=== PATIENT | female | born 1990 | race Caucasian/White ===

== ENCOUNTER 2018-10-29 14:59 | Emergency (ER) | payer MEDICAID ==
--- NOTE | 2018-10-29 17:30 | EDM.PDOC ---
ED HPI GENERAL MEDICAL PROBLEM - General Chief Complaint: Cardiovascular Problem Stated Complaint: FAST HEART RATE Time Seen by Provider: 10/29/18 17:30 Source of Information: Reports: Patient History Limitations: Reports: No Limitations - History of Present Illness INITIAL COMMENTS - FREE TEXT/NARRATIVE: pt arrived with a history of about 1/2 hour of heart rates in the teens. She does have a event recorder on so they should be able to recapture the rhythm. Pt does have some questionable thyroid abnormality which she needs to get checked out. Onset: Today, Sudden Duration: Other ( episode lasted about 1/2 hour/ ) Location: Reports: Chest Associated Symptoms: Reports: No Other Symptoms Chest Pain Score (Numeric/FACES): 4 - Related Data Allergies Allergy/AdvReac Type Severity Reaction Status Date / Time amoxicillin Allergy Hives Verified 10/29/18 16:08 Penicillins Allergy Hives Verified 10/29/18 16:08 Sulfa (Sulfonamide Allergy Hives Verified 10/29/18 16:08 Antibiotics) ibuprofen AdvReac Headache Verified 10/29/18 16:08 Home Meds: Home Meds Cholecalciferol (Vitamin D3) [Vitamin D] 5,000 unit PO BEDTIME 10/29/18 [History ] Dihydroxyacetone [Chromelin Complexion Blow Molder] 30 ml TP QID 10/29/18 [History] Fluticasone Propionate [Flonase] 16 gm NS DAILY 10/29/18 [History] Gabapentin [Neurontin] 800 mg PO BID 10/29/18 [History] Loratadine 10 mg PO DAILY 10/29/18 [History] PARoxetine [Paxil] 10 mg PO DAILY 10/29/18 [History] lamoTRIgine [Lamotrigine] 100 mg PO BID 10/29/18 [History] medroxyPROGESTERone Acetate [Depo-Provera] 150 mg IM ASDIRECTED 10/29/18 [ History] Past Medical History HEENT History: Reports: Allergic Rhinitis Cardiovascular History: Reports: Other (See Below) Other Cardiovascular History: [place] Gastrointestinal History: Reports: Chronic Constipation, Chronic Diarrhea, Irritable Bowel Syndrome [employer] History: Reports: Polycystic Ovaries Musculoskeletal History: Reports: Other (See Below) Other Musculoskeletal History: joint pain Neurological History: Reports: Concussion, Migraines Psychiatric History: Reports: Anxiety, Depression, Suicidal Ideation, Other ( See Below) Endocrine/Metabolic History: Reports: Vitamin D Deficiency Hematologic History: Reports: Other (See Below) Other Hematologic History: Lymes - Infectious Disease History Infectious Disease History: Reports: Chicken Pox - Past Surgical History GI Surgical History: Reports: Appendectomy Social & Family History - Tobacco Use Smoking Status *Q: Never Smoker - Caffeine Use Caffeine Use: Reports: Coffee - Recreational Drug Use Recreational Drug Use: No ED ROS GENERAL - Review of Systems Review Of Systems: See Below Constitutional: Reports: No Symptoms HEENT: Reports: No Symptoms Respiratory: Reports: Other (pt did feel miildly sob when she had the rapid rhythm) Cardiovascular: Reports: Palpitations Endocrine: Reports: No Symptoms, Other (she does have a history of some thyroid studies being mildly off. ) GI/Abdominal: Reports: No Symptoms : Reports: No Symptoms Musculoskeletal: Reports: No Symptoms Skin: Reports: No Symptoms ED EXAM, GENERAL - Physical Exam Exam: See Below Free Text/Narrative:: pt arrived with a history of having a heart rate in the teens. This lasted for about 1/2 hour. She had good oxgenation during that time. Exam Limited By: No Limitations General Appearance: Alert, No Apparent Distress, Anxious Ears: Normal TMs Nose: Normal Inspection Throat/Mouth: Normal Inspection Head: Atraumatic Neck: Other (no masses present) Respiratory/Chest: No Respiratory Distress Cardiovascular: Regular Rate, Rhythm, Other (Pt was monitored while in the ER and her rate remained in the 85 range. ) GI/Abdominal: Soft, Non-Tender (Female) Exam: Deferred Rectal (Female) Exam: Deferred Back Exam: Normal Inspection Extremities: Normal Inspection Neurological: Alert, Oriented, Normal Cognition Psychiatric: Normal Affect Course - Vital Signs Last Recorded V/S: Last Vital Signs Temp 35.0 C L 10/29/18 15:59 Pulse 88 10/29/18 15:59 Resp 17 10/29/18 15:59 BP 119/76 10/29/18 15:59 Pulse Ox 100 10/29/18 15:59 - Orders/Labs/Meds Orders: Active Orders 24 hr Category Date Time Status UA W/MICROSCOPIC [URIN] Urgent Lab 10/29/18 17:27 Ordered Labs: Laboratory Tests 10/29/18 10/29/18 10/29/18 Range/Units 16:49 16:49 16:53 WBC 8.5 (4.5-11.0) K/uL RBC 4.36 (3.30-5.50) M/uL Hgb 13.1 (12.0-15.0) g/dL Hct 39.6 (36.0-48.0) % MCV 91 (80-98) fL MCH 30 (27-31) pg MCHC 33 (32-36) % Plt Count 306 (150-400) K/uL Neut % (Auto) 67 H (36-66) % Lymph % (Auto) 23 L (24-44) % [place] % (Auto) 7 H (2-6) % Eos % (Auto) 2 (2-4) % Baso % (Auto) 1 (0-1) % Sodium 141 (140-148) mmol/L Potassium 3.7 (3.6-5.2) mmol/L Chloride 103 (100-108) mmol/L Carbon Dioxide 28 (21-32) mmol/L Anion Gap 10.4 (5.0-14.0) mmol/L BUN 7 (7-18) mg/dL Creatinine 1.1 H (0.6-1.0) mg/dL Est Cr Clr Drug Dosing 70.64 mL/min Estimated GFR (MDRD) 59 L (>60) Glucose 97 (74-106) mg/dL Calcium 9.5 (8.5-10.1) mg/dL Magnesium 2.0 (1.8-2.4) mg/dL Total Bilirubin 0.1 L (0.2-1.0) mg/dL AST 20 (15-37) U/L ALT 28 (12-78) U/L Alkaline Phosphatase 73 (46-116) U/L Total Protein 6.8 (6.4-8.2) g/dL Albumin 3.6 (3.4-5.0) g/dL Globulin 3.2 (2.3-3.5) g/dL Albumin/Globulin Ratio 1.1 L (1.2-2.2) - Re-Assessments/Exams Free Text/Narrative Re-Assessment/Exam: 10/29/18 17:40 pt had labs done. Her k was 3.7. Her mag was normal. All otherstudies looked good. Departure - Departure Time of Disposition: 17:31 Disposition: Home, Self-Care 01 Condition: Fair Clinical Impression: Tachycardia, Mild dehydration Referrals: PCP,None [Primary Care Provider] - Forms: ED Department Discharge Care Plan Goals: correlate this rhythm with times on the holter monitor to see what the rhythm was, push fluids, have further investigation on thyroid studies. - My Orders Last 24 Hours: My Active Orders 10/29/18 17:27 UA W/MICROSCOPIC [URIN] Urgent - Assessment/Plan Last 24 Hours: My Active Orders 10/29/18 17:27 UA W/MICROSCOPIC [URIN] Urgent
== END 2018-10-29 17:56 | disposition home or self-care (01) ==
LOC: JP.ED 14:59
DX: E86.0 Dehydration (principal); R00.0 Tachycardia, unspecified; F41.9 Anxiety disorder, unspecified; F32.9 Major depressive disorder, single episode, unspecified; Z88.1 Allergy status to other antibiotic agents; Z88.0 Allergy status to penicillin; Z88.2 Allergy status to sulfonamides; Z79.899 Other long term (current) drug therapy
CPT/HCPCS: 36415; 80053; 81001; 83735; 85025; 99284